=== PATIENT | female | born 1955 | race Caucasian/White ===

== ENCOUNTER → 2019-04-17 | Outpatient (REF) | LOC: M LAB LCGH 10:12 | PROVIDERS: ATTEND Nurse Practitioner Family | DX: D48.9 Neoplasm of uncertain behavior, unspecified (principal) ==

== ENCOUNTER → 2019-06-12 | Outpatient (REF) | LOC: M LAB LCGH 15:04 | PROVIDERS: ATTEND Nurse Practitioner Family | DX: L91.8 Other hypertrophic disorders of the skin (principal); R23.8 Other skin changes ==

== ENCOUNTER → 2019-06-26 | Outpatient (REF) | LOC: M LAB LCGH 11:53 | PROVIDERS: ATTEND Surgery | DX: Z00.00 Encounter for general adult medical examination without abnormal findings (principal) ==

== ENCOUNTER 2024-12-26 11:07 | Day surgery (SDC) | payer MEDICARE ==
[~2024-12-26] VITALS: Ht 167.6 cm; Wt 123.4 kg
[~2024-12-26 11:07] MED LIST: UNRESOLVED CLARIFICATION ENTRY XX ONE
[2024-12-26] MEDS: LR 1,000 ML IV SCH (11:54)
[2024-12-26] MEDS ORDERED: ONDANSETRON 4MG 2ML VIAL As Ordered ONE (12:01)
[2024-12-26] MEDS ORDERED: LIDOCAINE 2% 100MG/5ML SDV (FOR ANES.) As Ordered ONE (12:01)
[2024-12-26] MEDS ORDERED: fentaNYL 100 MCG/2 ML INJECTION As Ordered ONE (12:01)
[2024-12-26] MEDS ORDERED: propofoL 200 MG/20 ML VIAL As Ordered ONE (12:01)
[2024-12-26] MEDS ORDERED: MIDAZOLAM INJ 2MG/2ML VIAL As Ordered ONE (12:02)
[2024-12-26] MEDS: ceFAZolin SODIUM 3 GM in DEXTROSE 5% (D5W) MINI-BAG PLU 100 ML IV ONE (12:27)
[2024-12-26] MEDS ORDERED: ACETAMINOPHEN 1000MG/100ML IV BAG As Ordered ONE (12:31)
[2024-12-26] MEDS: ISOVUE-300 61% 100ML VIAL As Ordered ONE (13:09)
[2024-12-26] MEDS ORDERED: OXYB5TAB14 PO (13:24)
[2024-12-26] MEDS ORDERED: ONDANSETRON 4MG 2ML VIAL IV PRN (13:35)
[2024-12-26] MEDS ORDERED: HYDROMORPHONE HCL 0.5 MG/ 0.5 ML SYRINGE IV PRN (13:35)
[2024-12-26] MEDS ORDERED: oxyCODONE 5MG TAB PO PRN (13:35)
[2024-12-26] MEDS ORDERED: fentaNYL 100 MCG/2 ML INJECTION IV PRN (13:35)
[2024-12-26 14:39] VITALS: BP 142/92; TEMP 97.8; O2SAT 96
== END 2024-12-26 15:03 | disposition home or self-care (01) ==
LOC: M SDC 11:07
PROVIDERS: ATTEND Urology
DX: N20.2 Calculus of kidney with calculus of ureter (principal); Z68.42 Body mass index [BMI] 45.0-49.9, adult
CPT/HCPCS: 52356; 76000; 82365; C1769; C1894; C2617; J0131; J0690; J1100; J2250; J2405; J3010; Q9967